=== PATIENT | male | born 1965 | race Caucasian/White ===

== ENCOUNTER 2018-04-05 14:02 | Inpatient (IN) | payer OTHER ==
[2018-04-05 14:50] LABS: ADD MAN DIFF? NO
[2018-04-05 14:56] LABS: WHITE BLOOD COUNT 11.4 10^3/ul (4.8-10.8)
[2018-04-05 14:56] LABS: ABNORMAL IP MESSAGE 1; BASOPHILS % 0.3 % (0.0-2.0); HEMATOCRIT 42.8 % (42.0-52.0); HEMOGLOBIN 14.8 g/dl (14.0-18.0); LYMPHOCYTES # 1.8 10^3/ul (0.8-2.9); LYMPHOCYTES % 15.4 % (15.0-51.0); MEAN CORPUSCULAR HGB CONC 34.6 g/dl (32.0-37.0); MEAN CORPUSCULAR VOLUME 89.7 fl (82.0-101.0); MEAN PLATELET VOLUME 9.6 fl (7.4-10.4); MONOCYTE # 1.8 10^3/ul (0.3-0.9); MONOCYTES % 15.5 % (0.0-11.0); NEUTROPHIL # 7.8 10^3/ul (1.6-7.5); NEUTROPHILS % 68.1 % (39.0-77.0); PLATELET COUNT 256 10^3/UL (140-415); POSITIVE DIFF @See below; RED BLOOD COUNT 4.77 10^6/ul (4.70-6.10); RED CELL DISTRIBUTION WIDTH 12.3 % (11.5-14.5)
[2018-04-05] MEDS: ONDANSETRON 4 MG INJ IV ×2 (14:56→17:05)
[2018-04-05] MEDS: SOD CHLORIDE 0.9% 1,000 ML IV (14:56)
[2018-04-05 15:15] LABS: ALANINE AMINOTRANSFERASE 59 IU/L (13-69); ALBUMIN 4.6 g/dl (3.3-4.9); ALBUMIN/GLOBULIN RATIO 1.39; ALKALINE PHOSPHATASE 71 IU/L (42-121); ANION GAP 29 (5-13); ASPARTATE AMINO TRANSFERASE 46 IU/L (15-46); BILIRUBIN,INDIRECT 0.9 mg/dl (0-1.1); BILIRUBIN,TOTAL 0.9 mg/dl (0.2-1.3); BLOOD UREA NITROGEN 15 mg/dl (7-20); CALCIUM 8.5 mg/dl (8.4-10.2); CARBON DIOXIDE 13 mmol/L (21-31); CHLORIDE 88 mmol/L (97-110); CREATININE 0.53 mg/dl (0.61-1.24); Estimated GFR > 60 mL/min (>60); GLUCOSE 315 mg/dl (70-220); LIPASE 20 U/L (23-300); SODIUM 130 mmol/L (135-144); TOTAL PROTEIN 7.9 g/dl (6.1-8.1)
[2018-04-05 15:17] LABS: ADD UMIC YES; UR ASCORBIC ACID NEGATIVE (NEGATIVE); UR BACTERIA FEW /HPF (NONE SEEN); UR BILIRUBIN (Dip) NEGATIVE (NEGATIVE); UR BLOOD (Dip) 1+ mg/dL (NEGATIVE); UR CLARITY CLEAR (CLEAR); UR COLOR STRAW (YELLOW); UR GLUCOSE (Dip) 3+ mg/dL (NEGATIVE); UR KETONES (Dip) 2+ mg/dL (NEGATIVE); UR LEUKOCYTE ESTERASE (Dip) NEGATIVE Leu/ul (NEGATIVE); UR MUCUS FEW /HPF (NONE SEEN); UR NITRITE (Dip) NEGATIVE (NEGATIVE); UR RBC 0 /HPF (0-5); UR SPECIFIC GRAVITY (Dip) 1.024 (1.003-1.030); UR TOTAL PROTEIN (Dip) NEGATIVE (NEGATIVE); UR UROBILINOGEN (Dip) NEGATIVE (NEGATIVE); UR WBC 1 /HPF (0-5)
[2018-04-05] MEDS ORDERED: SOD CHLORIDE 0.9% 1,000 ML IV (15:34)
[2018-04-05] MEDS ORDERED: NS + KCL 40 MEQ 1,000 ML IV (15:34)
[2018-04-05] MEDS ORDERED: DEXTROSE 10 %/0.45 % NACL 1,000 ML IV (15:34)
[2018-04-05] MEDS ORDERED: D10/0.45% NACL + KCL 40 MEQ 1,000 ML IV (15:34)
[2018-04-05 15:56] LABS: MODE ROOM AIR; MetHgb Venous 0.3 %; Sample Type Blood venous; Site VENOUS LINE; Venous COHb 0.8 %; Venous Fraction OxyHgb 71.3 %; Venous Oxygen Sat 72.1 mmHG (55.0-75.0)
[2018-04-05] MEDS ORDERED: DEXTROSE 50% 50 ML SYRINGE IV ×2 (16:00)
[2018-04-05] MEDS: NS + KCL 30 MEQ 1,000 ML IV (16:20)
[2018-04-05] MEDS: D10/0.45% NACL + KCL 30 MEQ 1,000 ML IV ×3 (16:21→21:35)
[2018-04-05] MEDS: INSULIN REGULAR, HUMAN 100 UNIT in SOD CHLORIDE 0.9% 100 ML IV (16:25)
[2018-04-05 16:32] LABS: HEMOGLOBIN A1C 11.2 % (0-5.9)
[2018-04-05 16:46] LABS: ANION GAP 17 (5-13); BLOOD UREA NITROGEN 13 mg/dl (7-20); CARBON DIOXIDE 12 mmol/L (21-31); CHLORIDE 99 mmol/L (97-110); CREATININE 0.39 mg/dl (0.61-1.24); Estimated GFR > 60 mL/min (>60); GLUCOSE 230 mg/dl (70-220); MAGNESIUM 1.9 mg/dl (1.7-2.5); PHOSPHORUS 1.4 mg/dl (2.5-4.9); POTASSIUM 3.6 mmol/L (3.5-5.1); SODIUM 128 mmol/L (135-144)
[2018-04-05] MEDS ORDERED: ACETAMINOPHEN 325 MG TAB PO ×2 (17:00→17:30)
[2018-04-05] MEDS ORDERED: ALBUTEROL 0.083% (NEB) 2.5 MG/3 ML AMP NEB (17:30)
[2018-04-05] MEDS: METOCLOPRAMIDE 10 MG INJ IV (18:22)
[2018-04-05] MEDS: ACCU-CHEK XX ×5 (19:37→23:53)
[2018-04-05 20:15] LABS: MODE ROOM AIR; MetHgb Venous 0.2 %; Sample Type Blood venous; Site VENOUS LINE; Venous COHb 0.8 %; Venous Fraction OxyHgb 90.3 %; Venous Oxygen Sat 91.2 mmHG (55.0-75.0); Venous Total Hemglobin 12.8 g/dl
[2018-04-05 20:40] LABS: ANION GAP 10 (5-13); BLOOD UREA NITROGEN 9 mg/dl (7-20); CALCIUM 7.3 mg/dl (8.4-10.2); CARBON DIOXIDE 18 mmol/L (21-31); CHLORIDE 101 mmol/L (97-110); CREATININE 0.31 mg/dl (0.61-1.24); Estimated GFR > 60 mL/min (>60); GLUCOSE 272 mg/dl (70-220); PHOSPHORUS 0.7 mg/dl (2.5-4.9); POTASSIUM 3.6 mmol/L (3.5-5.1); SODIUM 129 mmol/L (135-144)
[2018-04-05] MEDS: GABAPENTIN 300 MG CAP PO (21:35)
[2018-04-05] MEDS: FAMOTIDINE 20 MG INJ IV (21:35)
[2018-04-05] MEDS: INSULIN GLARGINE [LANTus] (100 UNITS/ML) SYG SC (22:56)
[2018-04-06 00:25] LABS: ANION GAP 9 (5-13); BLOOD UREA NITROGEN 7 mg/dl (7-20); CALCIUM 7.3 mg/dl (8.4-10.2); CARBON DIOXIDE 21 mmol/L (21-31); CHLORIDE 100 mmol/L (97-110); CREATININE 0.32 mg/dl (0.61-1.24); Estimated GFR > 60 mL/min (>60); GLUCOSE 248 mg/dl (70-220); MAGNESIUM 1.9 mg/dl (1.7-2.5); PHOSPHORUS 0.5 mg/dl (2.5-4.9); POTASSIUM 3.3 mmol/L (3.5-5.1); SODIUM 130 mmol/L (135-144)
[2018-04-06 00:27] LABS: MODE ROOM AIR; MetHgb Venous 0.1 %; Sample Type Blood venous; Site VENOUS LINE; Venous COHb 1.1 %; Venous Fraction OxyHgb 88.8 %; Venous Oxygen Sat 89.9 mmHG (55.0-75.0); Venous Total Hemglobin 12.6 g/dl
[2018-04-06] MEDS: ACCU-CHEK XX ×7 (01:08→20:37)
[2018-04-06] MEDS: NS + KCL 30 MEQ 1,000 ML IV (02:11)
[2018-04-06 04:56] LABS: ADD MAN DIFF? NO
[2018-04-06 05:06] LABS: BASOPHILS % 0.1 % (0.0-2.0); HEMATOCRIT 32.4 % (42.0-52.0); HEMOGLOBIN 11.6 g/dl (14.0-18.0); LYMPHOCYTES # 1.3 10^3/ul (0.8-2.9); MEAN CORPUSCULAR HEMOGLOBIN 31.1 pg (29.0-33.0); MEAN CORPUSCULAR HGB CONC 35.8 g/dl (32.0-37.0); MEAN CORPUSCULAR VOLUME 86.9 fl (82.0-101.0); MEAN PLATELET VOLUME 9.6 fl (7.4-10.4); MONOCYTE # 1.4 10^3/ul (0.3-0.9); MONOCYTES % 18.5 % (0.0-11.0); NEUTROPHIL # 4.6 10^3/ul (1.6-7.5); PLATELET COUNT 186 10^3/UL (140-415); RED BLOOD COUNT 3.73 10^6/ul (4.70-6.10)
[2018-04-06 05:06] LABS: WHITE BLOOD COUNT 7.3 10^3/ul (4.8-10.8)
[2018-04-06] MEDS: ONDANSETRON 4 MG INJ IV (05:07)
[2018-04-06 05:26] LABS: ANION GAP 9 (5-13); BLOOD UREA NITROGEN 6 mg/dl (7-20); CALCIUM 7.5 mg/dl (8.4-10.2); CARBON DIOXIDE 22 mmol/L (21-31); CHLORIDE 100 mmol/L (97-110); CREATININE 0.31 mg/dl (0.61-1.24); Estimated GFR > 60 mL/min (>60); GLUCOSE 207 mg/dl (70-220); MAGNESIUM 1.9 mg/dl (1.7-2.5); PHOSPHORUS 0.8 mg/dl (2.5-4.9); POTASSIUM 3.2 mmol/L (3.5-5.1); SODIUM 131 mmol/L (135-144)
[2018-04-06] MEDS: METOCLOPRAMIDE 10 MG INJ IV ×2 (08:13→17:38)
[2018-04-06] MEDS: FAMOTIDINE 20 MG INJ IV (08:37)
[2018-04-06] MEDS: INSULIN ASPART [NOVOLOG] 3 ML PEN SC ×7 (08:39→20:34)
[2018-04-06] MEDS: ENOXAPARIN 40 MG/0.4 ML SYG SC (08:45)
[2018-04-06] MEDS ORDERED: GLUCAGON 1 MG INJ IM (09:00)
[2018-04-06] MEDS ORDERED: GLUCOSE GEL 15 GRAM TUBE BUCCAL (09:00)
[2018-04-06] MEDS ORDERED: DEXTROSE 50% 50 ML SYRINGE IV ×2 (09:00)
[2018-04-06] MEDS ORDERED: GLUCOSE GEL 15 GRAM TUBE PO ×2 (09:00)
[2018-04-06] MEDS: POTASSIUM CHLORIDE (SR) 20 MEQ TAB PO (09:37)
[2018-04-06] MEDS: GABAPENTIN 300 MG CAP PO (20:32)
[2018-04-06] MEDS: INSULIN GLARGINE [LANTus] (100 UNITS/ML) SYG SC (20:33)
[2018-04-06] MEDS: FAMOTIDINE 20 MG TAB PO (20:34)
[2018-04-07 05:52] LABS: ADD MAN DIFF? NO
[2018-04-07 06:02] LABS: WHITE BLOOD COUNT 6.6 10^3/ul (4.8-10.8)
[2018-04-07 06:02] LABS: BASOPHILS % 0.3 % (0.0-2.0); EOSINOPHILS % 0.3 % (0.0-7.0); HEMATOCRIT 35.1 % (42.0-52.0); HEMOGLOBIN 12.8 g/dl (14.0-18.0); LYMPHOCYTES # 1.5 10^3/ul (0.8-2.9); LYMPHOCYTES % 23.3 % (15.0-51.0); MEAN CORPUSCULAR HEMOGLOBIN 31.1 pg (29.0-33.0); MEAN CORPUSCULAR HGB CONC 36.5 g/dl (32.0-37.0); MEAN CORPUSCULAR VOLUME 85.2 fl (82.0-101.0); MEAN PLATELET VOLUME 9.8 fl (7.4-10.4); MONOCYTE # 1.1 10^3/ul (0.3-0.9); MONOCYTES % 17.1 % (0.0-11.0); NEUTROPHIL # 3.9 10^3/ul (1.6-7.5); NEUTROPHILS % 58.7 % (39.0-77.0); PLATELET COUNT 197 10^3/UL (140-415); RED BLOOD COUNT 4.12 10^6/ul (4.70-6.10); RED CELL DISTRIBUTION WIDTH 11.9 % (11.5-14.5)
[2018-04-07 06:44] LABS: ALBUMIN 3.2 g/dl (3.3-4.9); ANION GAP 5 (5-13); BLOOD UREA NITROGEN 6 mg/dl (7-20); CALCIUM 8.3 mg/dl (8.4-10.2); CARBON DIOXIDE 36 mmol/L (21-31); CHLORIDE 88 mmol/L (97-110); GLUCOSE 162 mg/dl (70-220); PHOSPHORUS 1.1 mg/dl (2.5-4.9); SODIUM 129 mmol/L (135-144)
[2018-04-07 06:54] LABS: POTASSIUM 2.8 mmol/L (3.5-5.1)
[2018-04-07] MEDS: ACCU-CHEK XX ×4 (07:30→20:22)
[2018-04-07] MEDS: INSULIN ASPART [NOVOLOG] 3 ML PEN SC ×7 (08:09→20:22)
[2018-04-07] MEDS: ENOXAPARIN 40 MG/0.4 ML SYG SC (08:10)
[2018-04-07] MEDS: FAMOTIDINE 20 MG TAB PO ×2 (08:10→20:22)
[2018-04-07] MEDS: POTASSIUM CHLORIDE (SR) 20 MEQ TAB PO (09:13)
[2018-04-07] MEDS: POTASSIUM PHOSPHATE 40 MEQ in SOD CHLORIDE 0.9% 250 ML IVPB (09:14)
[2018-04-07] MEDS: POTASSIUM CHLORIDE 40 MEQ in SOD CHLORIDE 0.9% 1,000 ML IV (14:50)
[2018-04-07] MEDS: INSULIN GLARGINE [LANTus] (100 UNITS/ML) SYG SC (20:21)
[2018-04-07] MEDS: ZOLPIDEM 5 MG TAB PO (20:22)
[2018-04-07] MEDS: GABAPENTIN 300 MG CAP PO (20:22)
[2018-04-08] MEDS: POTASSIUM CHLORIDE 40 MEQ in SOD CHLORIDE 0.9% 1,000 ML IV ×3 (00:36→20:00)
[2018-04-08 06:19] LABS: ADD MAN DIFF? NO
[2018-04-08 06:33] LABS: BASOPHILS % 0.2 % (0.0-2.0); EOSINOPHILS % 0.8 % (0.0-7.0); HEMATOCRIT 36.2 % (42.0-52.0); LYMPHOCYTES # 1.4 10^3/ul (0.8-2.9); LYMPHOCYTES % 26.9 % (15.0-51.0); MEAN CORPUSCULAR HEMOGLOBIN 31.3 pg (29.0-33.0); MEAN CORPUSCULAR HGB CONC 35.9 g/dl (32.0-37.0); MEAN PLATELET VOLUME 9.9 fl (7.4-10.4); MONOCYTE # 0.9 10^3/ul (0.3-0.9); MONOCYTES % 17.2 % (0.0-11.0); NEUTROPHIL # 2.8 10^3/ul (1.6-7.5); NEUTROPHILS % 54.5 % (39.0-77.0); PLATELET COUNT 188 10^3/UL (140-415); RED BLOOD COUNT 4.16 10^6/ul (4.70-6.10)
[2018-04-08 06:33] LABS: WHITE BLOOD COUNT 5.1 10^3/ul (4.8-10.8)
[2018-04-08 07:29] LABS: ALBUMIN 3.1 g/dl (3.3-4.9); ANION GAP 5 (5-13); BLOOD UREA NITROGEN 4 mg/dl (7-20); CALCIUM 8.5 mg/dl (8.4-10.2); CARBON DIOXIDE 29 mmol/L (21-31); CHLORIDE 96 mmol/L (97-110); CREATININE 0.34 mg/dl (0.61-1.24); GLUCOSE 106 mg/dl (70-220); MAGNESIUM 2.1 mg/dl (1.7-2.5); PHOSPHORUS 1.7 mg/dl (2.5-4.9); POTASSIUM 3.6 mmol/L (3.5-5.1); SODIUM 130 mmol/L (135-144)
[2018-04-08] MEDS: ACCU-CHEK XX ×4 (07:30→20:12)
[2018-04-08] MEDS: INSULIN ASPART [NOVOLOG] 3 ML PEN SC ×7 (08:00→20:11)
[2018-04-08] MEDS: ENOXAPARIN 40 MG/0.4 ML SYG SC (08:15)
[2018-04-08] MEDS: FAMOTIDINE 20 MG TAB PO (08:15)
[2018-04-08] MEDS: ONDANSETRON 4 MG INJ IV (11:04)
[2018-04-08] MEDS: POTASSIUM PHOSPHATE 30 MM in SOD CHLORIDE 0.9% 250 ML IVPB (11:05)
[2018-04-08] MEDS: POLYETHYLENE GLYCOL 17 GM PACKET PO (12:12)
[2018-04-08] MEDS: BACLOFEN 10 MG TAB PO ×2 (17:47→20:06)
[2018-04-08] MEDS: GABAPENTIN 300 MG CAP PO (20:06)
[2018-04-08] MEDS: INSULIN GLARGINE [LANTus] (100 UNITS/ML) SYG SC (20:11)
[2018-04-09] MEDS: POTASSIUM CHLORIDE 40 MEQ in SOD CHLORIDE 0.9% 1,000 ML IV ×2 (03:55→16:04)
[2018-04-09 05:33] LABS: ADD MAN DIFF? NO
[2018-04-09 05:34] LABS: BASOPHILS % 0.3 % (0.0-2.0); EOSINOPHILS % 0.1 % (0.0-7.0); HEMATOCRIT 35.2 % (42.0-52.0); HEMOGLOBIN 12.4 g/dl (14.0-18.0); LYMPHOCYTES # 0.9 10^3/ul (0.8-2.9); LYMPHOCYTES % 11.5 % (15.0-51.0); MEAN CORPUSCULAR HEMOGLOBIN 31.2 pg (29.0-33.0); MEAN CORPUSCULAR HGB CONC 35.2 g/dl (32.0-37.0); MEAN CORPUSCULAR VOLUME 88.4 fl (82.0-101.0); MEAN PLATELET VOLUME 9.5 fl (7.4-10.4); MONOCYTE # 0.6 10^3/ul (0.3-0.9); MONOCYTES % 7.7 % (0.0-11.0); PLATELET COUNT 204 10^3/UL (140-415); RED BLOOD COUNT 3.98 10^6/ul (4.70-6.10); RED CELL DISTRIBUTION WIDTH 12.2 % (11.5-14.5)
[2018-04-09 05:34] LABS: WHITE BLOOD COUNT 7.5 10^3/ul (4.8-10.8)
[2018-04-09 05:59] LABS: ALBUMIN 3.1 g/dl (3.3-4.9); ANION GAP 7 (5-13); BLOOD UREA NITROGEN 7 mg/dl (7-20); CALCIUM 8.6 mg/dl (8.4-10.2); CARBON DIOXIDE 29 mmol/L (21-31); CHLORIDE 96 mmol/L (97-110); CREATININE 0.39 mg/dl (0.61-1.24); GLUCOSE 132 mg/dl (70-220); PHOSPHORUS 3.3 mg/dl (2.5-4.9); POTASSIUM 3.9 mmol/L (3.5-5.1); SODIUM 132 mmol/L (135-144)
[2018-04-09] MEDS: PANTOPRAZOLE (EC) 40 MG TAB PO (06:05)
[2018-04-09] MEDS: ACCU-CHEK XX ×4 (08:06→21:00)
[2018-04-09] MEDS: INSULIN ASPART [NOVOLOG] 3 ML PEN SC ×7 (08:07→20:26)
[2018-04-09] MEDS: ENOXAPARIN 40 MG/0.4 ML SYG SC (08:08)
[2018-04-09] MEDS: BACLOFEN 10 MG TAB PO ×3 (08:09→20:24)
[2018-04-09] MEDS: POLYETHYLENE GLYCOL 17 GM PACKET PO (08:09)
[2018-04-09] MEDS ORDERED: OLOPATADINE 0.1% 5 ML OPH BOTH EYES ×2 (10:00→12:00)
[2018-04-09] MEDS: INFLUENZA VIRUS VACCINE 0.5 ML (DISPENSING) IM* (14:03)
[2018-04-09] MEDS: OLOPATADINE 0.2% (ONCE A DAY) OPHTH DROP 2.5 ML BOTH EYES (14:22)
[2018-04-09] MEDS: GABAPENTIN 300 MG CAP PO (20:24)
[2018-04-09] MEDS: INSULIN GLARGINE [LANTus] (100 UNITS/ML) SYG SC (20:25)
[2018-04-09] MEDS: ZOLPIDEM 5 MG TAB PO (23:59)
[2018-04-10] MEDS: PANTOPRAZOLE (EC) 40 MG TAB PO (05:22)
[2018-04-10] MEDS: POTASSIUM CHLORIDE 40 MEQ in SOD CHLORIDE 0.9% 1,000 ML IV (05:22)
[2018-04-10 05:51] LABS: ADD MAN DIFF? NO
[2018-04-10 06:05] LABS: WHITE BLOOD COUNT 6.5 10^3/ul (4.8-10.8)
[2018-04-10 06:05] LABS: BASOPHILS % 0.5 % (0.0-2.0); EOSINOPHILS # 0.1 10^3/ul (0.0-0.5); EOSINOPHILS % 0.9 % (0.0-7.0); HEMATOCRIT 36.3 % (42.0-52.0); HEMOGLOBIN 12.5 g/dl (14.0-18.0); LYMPHOCYTES # 1.2 10^3/ul (0.8-2.9); LYMPHOCYTES % 18.6 % (15.0-51.0); MEAN CORPUSCULAR HEMOGLOBIN 30.9 pg (29.0-33.0); MEAN CORPUSCULAR HGB CONC 34.4 g/dl (32.0-37.0); MEAN CORPUSCULAR VOLUME 89.9 fl (82.0-101.0); MEAN PLATELET VOLUME 9.5 fl (7.4-10.4); MONOCYTE # 1.1 10^3/ul (0.3-0.9); MONOCYTES % 17.5 % (0.0-11.0); PLATELET COUNT 229 10^3/UL (140-415); RED BLOOD COUNT 4.04 10^6/ul (4.70-6.10); RED CELL DISTRIBUTION WIDTH 12.7 % (11.5-14.5)
[2018-04-10 07:03] LABS: ALBUMIN 3.2 g/dl (3.3-4.9); ANION GAP 7 (5-13); BLOOD UREA NITROGEN 9 mg/dl (7-20); CALCIUM 9.1 mg/dl (8.4-10.2); CARBON DIOXIDE 29 mmol/L (21-31); CHLORIDE 96 mmol/L (97-110); CREATININE 0.42 mg/dl (0.61-1.24); GLUCOSE 206 mg/dl (70-220); PHOSPHORUS 3.5 mg/dl (2.5-4.9); POTASSIUM 4.2 mmol/L (3.5-5.1); SODIUM 132 mmol/L (135-144)
[2018-04-10] MEDS: ACCU-CHEK XX ×4 (08:15→20:20)
[2018-04-10] MEDS: INSULIN ASPART [NOVOLOG] 3 ML PEN SC ×7 (08:16→20:20)
[2018-04-10] MEDS: POLYETHYLENE GLYCOL 17 GM PACKET PO (09:05)
[2018-04-10] MEDS: BACLOFEN 10 MG TAB PO ×3 (09:05→20:19)
[2018-04-10] MEDS: ENOXAPARIN 40 MG/0.4 ML SYG SC (09:07)
[2018-04-10] MEDS: INFLUENZA VIRUS VACCINE 0.5 ML (DISPENSING) IM* (10:34)
[2018-04-10] MEDS: MAGNESIUM HYDROXIDE 30ML CUP PO (11:00)
[2018-04-10] MEDS: GABAPENTIN 300 MG CAP PO (20:19)
[2018-04-10] MEDS: INSULIN GLARGINE [LANTus] (100 UNITS/ML) SYG SC (20:20)
[2018-04-11 06:06] LABS: ADD MAN DIFF? NO
[2018-04-11 06:12] LABS: ABNORMAL IP MESSAGE 1; BASOPHILS % 0.5 % (0.0-2.0); EOSINOPHILS # 0.1 10^3/ul (0.0-0.5); EOSINOPHILS % 1.4 % (0.0-7.0); HEMATOCRIT 37.1 % (42.0-52.0); HEMOGLOBIN 12.6 g/dl (14.0-18.0); LYMPHOCYTES # 1.9 10^3/ul (0.8-2.9); LYMPHOCYTES % 22.1 % (15.0-51.0); MEAN CORPUSCULAR HEMOGLOBIN 30.7 pg (29.0-33.0); MEAN CORPUSCULAR VOLUME 90.3 fl (82.0-101.0); MEAN PLATELET VOLUME 9.6 fl (7.4-10.4); MONOCYTE # 1.8 10^3/ul (0.3-0.9); MONOCYTES % 21.3 % (0.0-11.0); NEUTROPHIL # 4.6 10^3/ul (1.6-7.5); NEUTROPHILS % 54.3 % (39.0-77.0); PLATELET COUNT 293 10^3/UL (140-415); POSITIVE DIFF @See below; RED BLOOD COUNT 4.11 10^6/ul (4.70-6.10); RED CELL DISTRIBUTION WIDTH 12.9 % (11.5-14.5)
[2018-04-11 06:12] LABS: WHITE BLOOD COUNT 8.4 10^3/ul (4.8-10.8)
[2018-04-11] MEDS: PANTOPRAZOLE (EC) 40 MG TAB PO (06:26)
[2018-04-11 06:46] LABS: ALBUMIN 3.3 g/dl (3.3-4.9); ANION GAP 7 (5-13); BLOOD UREA NITROGEN 19 mg/dl (7-20); CALCIUM 9.2 mg/dl (8.4-10.2); CARBON DIOXIDE 31 mmol/L (21-31); CHLORIDE 93 mmol/L (97-110); CREATININE 0.42 mg/dl (0.61-1.24); GLUCOSE 296 mg/dl (70-220); MAGNESIUM 2.1 mg/dl (1.7-2.5); PHOSPHORUS 4.3 mg/dl (2.5-4.9); POTASSIUM 4.3 mmol/L (3.5-5.1); SODIUM 131 mmol/L (135-144)
[2018-04-11] MEDS: INSULIN ASPART [NOVOLOG] 3 ML PEN SC ×7 (07:46→20:06)
[2018-04-11] MEDS: ACCU-CHEK XX ×4 (07:47→20:06)
[2018-04-11] MEDS: POLYETHYLENE GLYCOL 17 GM PACKET PO (09:23)
[2018-04-11] MEDS: ENOXAPARIN 40 MG/0.4 ML SYG SC (09:24)
[2018-04-11] MEDS: DOCUSATE SODIUM 100 MG CAP PO (09:24)
[2018-04-11] MEDS: BACLOFEN 10 MG TAB PO ×2 (09:24→12:16)
[2018-04-11] MEDS: MINERAL OIL 133 ML ENEMA PR (16:30)
[2018-04-11] MEDS: MAGNESIUM CITRATE 300 ML BTL PO (16:36)
[2018-04-11] MEDS: GABAPENTIN 300 MG CAP PO (20:06)
[2018-04-11] MEDS: INSULIN GLARGINE [LANTus] (100 UNITS/ML) SYG SC (20:06)
[2018-04-12] MEDS: PANTOPRAZOLE (EC) 40 MG TAB PO (06:14)
[2018-04-12 06:17] LABS: ADD MAN DIFF? NO
[2018-04-12 06:23] LABS: WHITE BLOOD COUNT 8.2 10^3/ul (4.8-10.8)
[2018-04-12 06:23] LABS: ABNORMAL IP MESSAGE 1; BASOPHILS % 0.4 % (0.0-2.0); EOSINOPHILS # 0.1 10^3/ul (0.0-0.5); EOSINOPHILS % 1.1 % (0.0-7.0); HEMATOCRIT 35.3 % (42.0-52.0); HEMOGLOBIN 11.8 g/dl (14.0-18.0); LYMPHOCYTES # 1.6 10^3/ul (0.8-2.9); LYMPHOCYTES % 19.1 % (15.0-51.0); MEAN CORPUSCULAR HEMOGLOBIN 30.8 pg (29.0-33.0); MEAN CORPUSCULAR HGB CONC 33.4 g/dl (32.0-37.0); MEAN CORPUSCULAR VOLUME 92.2 fl (82.0-101.0); MEAN PLATELET VOLUME 9.3 fl (7.4-10.4); MONOCYTE # 1.9 10^3/ul (0.3-0.9); MONOCYTES % 22.9 % (0.0-11.0); NEUTROPHIL # 4.6 10^3/ul (1.6-7.5); PLATELET COUNT 330 10^3/UL (140-415); POSITIVE DIFF @See below; RED BLOOD COUNT 3.83 10^6/ul (4.70-6.10); RED CELL DISTRIBUTION WIDTH 13.2 % (11.5-14.5)
[2018-04-12 07:02] LABS: ALBUMIN 3.4 g/dl (3.3-4.9); ANION GAP 8 (5-13); BLOOD UREA NITROGEN 19 mg/dl (7-20); CALCIUM 8.6 mg/dl (8.4-10.2); CARBON DIOXIDE 33 mmol/L (21-31); CHLORIDE 91 mmol/L (97-110); CREATININE 0.46 mg/dl (0.61-1.24); GLUCOSE 223 mg/dl (70-220); MAGNESIUM 2.5 mg/dl (1.7-2.5); PHOSPHORUS 3.4 mg/dl (2.5-4.9); POTASSIUM 4.1 mmol/L (3.5-5.1); SODIUM 132 mmol/L (135-144)
[2018-04-12] MEDS: ACCU-CHEK XX ×4 (07:30→21:00)
[2018-04-12] MEDS: INSULIN ASPART [NOVOLOG] 3 ML PEN SC ×7 (08:22→20:50)
[2018-04-12] MEDS: ENOXAPARIN 40 MG/0.4 ML SYG SC (09:43)
[2018-04-12] MEDS: POLYETHYLENE GLYCOL 17 GM PACKET PO (09:47)
[2018-04-12] MEDS: SOD CHLORIDE 0.9% 1,000 ML IV ×4 (09:47→21:00)
[2018-04-12] MEDS: GABAPENTIN 300 MG CAP PO (20:50)
[2018-04-12] MEDS: INSULIN GLARGINE [LANTus] (100 UNITS/ML) SYG SC (20:58)
[2018-04-12 22:36] LABS: TROPONIN-I < 0.012 ng/ml (0.000-0.120)
[2018-04-13] MEDS: SOD CHLORIDE 0.9% 1,000 ML IV ×3 (02:47→11:18)
[2018-04-13 05:38] LABS: ADD MAN DIFF? NO
[2018-04-13 05:46] LABS: WHITE BLOOD COUNT 7.1 10^3/ul (4.8-10.8)
[2018-04-13 05:46] LABS: BASOPHILS % 0.4 % (0.0-2.0); EOSINOPHILS # 0.1 10^3/ul (0.0-0.5); EOSINOPHILS % 1.7 % (0.0-7.0); HEMATOCRIT 32.5 % (42.0-52.0); HEMOGLOBIN 10.8 g/dl (14.0-18.0); LYMPHOCYTES # 1.8 10^3/ul (0.8-2.9); LYMPHOCYTES % 25.7 % (15.0-51.0); MEAN CORPUSCULAR HEMOGLOBIN 30.8 pg (29.0-33.0); MEAN CORPUSCULAR HGB CONC 33.2 g/dl (32.0-37.0); MEAN CORPUSCULAR VOLUME 92.6 fl (82.0-101.0); MEAN PLATELET VOLUME 9.1 fl (7.4-10.4); MONOCYTE # 1.5 10^3/ul (0.3-0.9); MONOCYTES % 20.5 % (0.0-11.0); NEUTROPHIL # 3.6 10^3/ul (1.6-7.5); NEUTROPHILS % 51.1 % (39.0-77.0); PLATELET COUNT 348 10^3/UL (140-415); RED BLOOD COUNT 3.51 10^6/ul (4.70-6.10); RED CELL DISTRIBUTION WIDTH 13.3 % (11.5-14.5)
[2018-04-13 06:05] LABS: INR 0.92; PROTIME 12.5 Sec (11.9-14.9)
[2018-04-13] MEDS: PANTOPRAZOLE (EC) 40 MG TAB PO (06:08)
[2018-04-13 06:16] LABS: ALANINE AMINOTRANSFERASE 42 IU/L (13-69); ALBUMIN/GLOBULIN RATIO 1.07; ALKALINE PHOSPHATASE 62 IU/L (42-121); ANION GAP 7 (5-13); ASPARTATE AMINO TRANSFERASE 30 IU/L (15-46); BILIRUBIN,INDIRECT 0.2 mg/dl (0-1.1); BILIRUBIN,TOTAL 0.2 mg/dl (0.2-1.3); BLOOD UREA NITROGEN 12 mg/dl (7-20); CALCIUM 8.5 mg/dl (8.4-10.2); CARBON DIOXIDE 29 mmol/L (21-31); CHLORIDE 101 mmol/L (97-110); CREATININE 0.48 mg/dl (0.61-1.24); Estimated GFR > 60 mL/min (>60); GLUCOSE 88 mg/dl (70-220); SODIUM 137 mmol/L (135-144); TOTAL PROTEIN 5.8 g/dl (6.1-8.1)
[2018-04-13 06:23] LABS: MAGNESIUM 2.3 mg/dl (1.7-2.5)
[2018-04-13 06:23] LABS: PHOSPHORUS 3.5 mg/dl (2.5-4.9)
[2018-04-13 06:28] LABS: TROPONIN-I < 0.012 ng/ml (0.000-0.120)
[2018-04-13] MEDS: ACCU-CHEK XX ×3 (07:30→17:12)
[2018-04-13] MEDS: INSULIN ASPART [NOVOLOG] 3 ML PEN SC ×6 (07:53→17:12)
[2018-04-13] MEDS: POLYETHYLENE GLYCOL 17 GM PACKET PO (08:05)
[2018-04-13] MEDS: ENOXAPARIN 40 MG/0.4 ML SYG SC (08:08)
== END 2018-04-13 18:45 | disposition home or self-care (01) | DRG 638 ==
LOC: PP2 04-06 12:14 → E/R 14:02 → ICU 16:38
DX: E10.10 Type 1 diabetes mellitus with ketoacidosis without coma (principal); E87.1 Hypo-osmolality and hyponatremia; E44.0 Moderate protein-calorie malnutrition; K59.00 Constipation, unspecified; E87.6 Hypokalemia; Z79.4 Long term (current) use of insulin; Z68.21 Body mass index [BMI] 21.0-21.9, adult; Z91.14 Patient's other noncompliance with medication regimen
CPT/HCPCS: 36415; 71045; 80048; 80053; 80069; 81001; 82533; 82803; 82962; 83036; 83690; 83735; 84100; 84443; 84484; 85025; 85610; 87081; 90686; 93005; 96374; 96375; 99291-25

== ENCOUNTER 2018-05-05 12:50 | Emergency (ER) | payer OTHER ==
[2018-05-05] MEDS: FAMOTIDINE 20 MG INJ IV (15:34)
[2018-05-05] MEDS: ONDANSETRON 4 MG INJ IV (15:34)
[2018-05-05] MEDS: SOD CHLORIDE 0.9% 1,000 ML IV (15:35)
[2018-05-05 15:44] LABS: ADD MAN DIFF? NO
[2018-05-05 15:48] LABS: WHITE BLOOD COUNT 7.8 10^3/ul (4.8-10.8)
[2018-05-05 15:48] LABS: BASOPHILS % 0.3 % (0.0-2.0); HEMATOCRIT 43.8 % (42.0-52.0); HEMOGLOBIN 14.3 g/dl (14.0-18.0); LYMPHOCYTES # 1.3 10^3/ul (0.8-2.9); MEAN CORPUSCULAR HGB CONC 32.6 g/dl (32.0-37.0); MEAN PLATELET VOLUME 10.7 fl (7.4-10.4); MONOCYTE # 0.4 10^3/ul (0.3-0.9); MONOCYTES % 5.1 % (0.0-11.0); NEUTROPHILS % 77.2 % (39.0-77.0); PLATELET COUNT 198 10^3/UL (140-415); RED BLOOD COUNT 4.61 10^6/ul (4.70-6.10); RED CELL DISTRIBUTION WIDTH 13.4 % (11.5-14.5)
[2018-05-05 16:07] LABS: ALANINE AMINOTRANSFERASE 57 IU/L (13-69); ALBUMIN 4.9 g/dl (3.3-4.9); ALBUMIN/GLOBULIN RATIO 1.75; ALKALINE PHOSPHATASE 75 IU/L (42-121); ANION GAP 16 (5-13); ASPARTATE AMINO TRANSFERASE 29 IU/L (15-46); BILIRUBIN,INDIRECT 1.2 mg/dl (0-1.1); BILIRUBIN,TOTAL 1.2 mg/dl (0.2-1.3); BLOOD UREA NITROGEN 20 mg/dl (7-20); CALCIUM 10.1 mg/dl (8.4-10.2); CARBON DIOXIDE 29 mmol/L (21-31); CHLORIDE 93 mmol/L (97-110); Estimated GFR > 60 mL/min (>60); GLUCOSE 353 mg/dl (70-220); POTASSIUM 4.5 mmol/L (3.5-5.1); SODIUM 138 mmol/L (135-144); TOTAL PROTEIN 7.7 g/dl (6.1-8.1)
[2018-05-05 16:11] LABS: LIPASE < 10 U/L (23-300)
[2018-05-05 16:21] LABS: ADD UMIC NO; UR ASCORBIC ACID 20 mg/dL (NEGATIVE); UR BILIRUBIN (Dip) NEGATIVE (NEGATIVE); UR BLOOD (Dip) NEGATIVE (NEGATIVE); UR CLARITY CLEAR (CLEAR); UR COLOR YELLOW (YELLOW); UR GLUCOSE (Dip) 3+ mg/dL (NEGATIVE); UR KETONES (Dip) 2+ mg/dL (NEGATIVE); UR LEUKOCYTE ESTERASE (Dip) NEGATIVE Leu/ul (NEGATIVE); UR NITRITE (Dip) NEGATIVE (NEGATIVE); UR SPECIFIC GRAVITY (Dip) 1.033 (1.003-1.030); UR TOTAL PROTEIN (Dip) NEGATIVE (NEGATIVE); UR UROBILINOGEN (Dip) NEGATIVE (NEGATIVE)
[2018-05-05] MEDS ORDERED: ONDANSETRON (ODT) 4 MG TAB ODT (17:52)
[2018-05-05] MEDS: ONDANSETRON (ODT) 4 MG TAB ODT (17:54)
== END 2018-05-05 18:19 | disposition home or self-care (01) ==
LOC: FTE 12:50
DX: R11.2 Nausea with vomiting, unspecified (principal)
CPT/HCPCS: 36415; 80053; 81003; 83690; 85025; 93005; 96361; 96374; 96375; 99284-25

== ENCOUNTER 2018-06-08 20:27 | Inpatient (IN) | payer OTHER ==
[2018-06-08] MEDS: SOD CHLORIDE 0.9% 1,000 ML IV (22:12)
[2018-06-08 22:16] LABS: WHITE BLOOD COUNT 5.4 10^3/ul (4.8-10.8)
[2018-06-08 22:16] LABS: ABNORMAL IP MESSAGE 1; HEMATOCRIT 44.8 % (42.0-52.0); HEMOGLOBIN 15.2 g/dl (14.0-18.0); MEAN CORPUSCULAR HGB CONC 33.9 g/dl (32.0-37.0); MEAN CORPUSCULAR VOLUME 91.4 fl (82.0-101.0); MEAN PLATELET VOLUME 9.6 fl (7.4-10.4); PLATELET COUNT 207 10^3/UL (140-415); POSITIVE DIFF @See below; RED CELL DISTRIBUTION WIDTH 12.8 % (11.5-14.5)
[2018-06-08 22:19] LABS: ADD MAN DIFF? YES
[2018-06-08 22:32] LABS: ALANINE AMINOTRANSFERASE 39 IU/L (13-69); ALBUMIN 4.3 g/dl (3.3-4.9); ALBUMIN/GLOBULIN RATIO 1.59; ALKALINE PHOSPHATASE 84 IU/L (42-121); ANION GAP 23 (5-13); ASPARTATE AMINO TRANSFERASE 13 IU/L (15-46); BILIRUBIN,INDIRECT 1.2 mg/dl (0-1.1); BILIRUBIN,TOTAL 1.2 mg/dl (0.2-1.3); BLOOD UREA NITROGEN 14 mg/dl (7-20); CALCIUM 8.7 mg/dl (8.4-10.2); CHLORIDE 95 mmol/L (97-110); CREATININE 0.62 mg/dl (0.61-1.24); Estimated GFR > 60 mL/min (>60); LIPASE 12 U/L (23-300); POTASSIUM 3.5 mmol/L (3.5-5.1); SODIUM 125 mmol/L (135-144)
[2018-06-08 22:38] LABS: CARBON DIOXIDE 7 mmol/L (21-31); GLUCOSE 434 mg/dl (70-220)
[2018-06-08] MEDS ORDERED: NS + KCL 40 MEQ 1,000 ML IV (23:03)
[2018-06-08] MEDS ORDERED: SOD CHLORIDE 0.9% 1,000 ML IV (23:03)
[2018-06-08] MEDS ORDERED: DEXTROSE 10%/0.45% NACL 1,000 ML IV (23:03)
[2018-06-08] MEDS ORDERED: D10/0.45% NACL + KCL 40 MEQ 1,000 ML IV (23:03)
[2018-06-08] MEDS: LACTATED RINGER'S 520 ML IV (23:15)
[2018-06-08 23:24] LABS: MODE ROOM AIR; MetHgb Venous 0.2 %; Sample Type Blood venous; Site VENOUS LINE; Venous COHb 0.7 %; Venous Fraction OxyHgb 85.5 %; Venous Oxygen Sat 86.3 mmHG (55.0-75.0); Venous Total Hemglobin 14.2 g/dl
[2018-06-08] MEDS ORDERED: DEXTROSE 50% 50 ML SYRINGE IV ×2 (23:30)
[2018-06-08 23:34] LABS: ANISOCYTOSIS 1+ (0-0); BAND NEUTROPHILS % (M) 38 % (0-4); LYMPHOCYTES #M 0.5 10^3/ul (0.8-2.9); LYMPHOCYTES % (M) 10 % (15-51); METAMYELOCYTES #M 0.2 10^3/ul (0.0-0.0); METAMYELOCYTES %M 5 % (0-0); MICROCYTOSIS 1+ (0-0); MONOCYTE #M 0.9 10^3/ul (0.3-0.9); MONOCYTES % (M) 18 % (0-11); MYELOCYTES % (M) 1 % (0-0); PLATELET ESTIMATE NORMAL; POLYCHROMASIA 2+ (0-0); SEG NEUT #M 1.6 10^3/ul (1.6-7.5); SEGMENTED NEUTROPHILS (M) % 28 % (39-77); SMUDGE%M 20 % (0-0)
[2018-06-08 23:53] LABS: ADD UMIC YES; UR ASCORBIC ACID NEGATIVE (NEGATIVE); UR BACTERIA FEW /HPF (NONE SEEN); UR BILIRUBIN (Dip) NEGATIVE (NEGATIVE); UR BLOOD (Dip) 2+ mg/dL (NEGATIVE); UR CLARITY SLIGHTLY CLOUDY (CLEAR); UR COLOR STRAW (YELLOW); UR GLUCOSE (Dip) 3+ mg/dL (NEGATIVE); UR KETONES (Dip) 2+ mg/dL (NEGATIVE); UR LEUKOCYTE ESTERASE (Dip) NEGATIVE Leu/ul (NEGATIVE); UR NITRITE (Dip) NEGATIVE (NEGATIVE); UR RBC 0 /HPF (0-5); UR SPECIFIC GRAVITY (Dip) 1.018 (1.003-1.030); UR TOTAL PROTEIN (Dip) 1+ mg/dl (NEGATIVE); UR UROBILINOGEN (Dip) NEGATIVE (NEGATIVE); UR WBC 1 /HPF (0-5)
[2018-06-09 00:05] LABS: HEMOGLOBIN A1C 11.2 % (0-5.9)
[2018-06-09] MEDS: NS + KCL 30 MEQ 1,000 ML IV (00:13)
[2018-06-09] MEDS: INSULIN REGULAR, HUMAN 100 UNIT in SOD CHLORIDE 0.9% 100 ML IV (00:17)
[2018-06-09] MEDS: ONDANSETRON 4 MG INJ IV (00:26)
[2018-06-09] MEDS: D10/0.45% NACL + KCL 30 MEQ 1,000 ML IV (01:00)
[2018-06-09 01:25] LABS: ANION GAP 21 (5-13); BLOOD UREA NITROGEN 14 mg/dl (7-20); CALCIUM 7.9 mg/dl (8.4-10.2); CHLORIDE 101 mmol/L (97-110); CREATININE 0.56 mg/dl (0.61-1.24); Estimated GFR > 60 mL/min (>60); GLUCOSE 391 mg/dl (70-220); MAGNESIUM 1.9 mg/dl (1.7-2.5); MODE NASAL CANNULA; MetHgb Venous 0.1 %; PHOSPHORUS 1.8 mg/dl (2.5-4.9); POTASSIUM 3.5 mmol/L (3.5-5.1); SODIUM 128 mmol/L (135-144); Sample Type Blood venous; Site VENOUS LINE; Venous COHb 0.9 %; Venous Fraction OxyHgb 83.6 %; Venous Oxygen Sat 84.4 mmHG (55.0-75.0); Venous Total Hemglobin 14.1 g/dl
[2018-06-09 01:29] LABS: CARBON DIOXIDE 6 mmol/L (21-31)
[2018-06-09 02:09] LABS: AADO2 Arterial 174.9 mmHg (7.0-24.0); Allen Test ACCEPTAB; Arterial Base Excess -18.4 mmol/L (-3.0-3); Arterial Blood Gas Oxygen Sat 91.1 mmHG (95.0-98.0); Arterial COHb 0.8 % (0.0-3.0); Arterial Fraction of Oxyhgb 90.3 % (93.0-99.0); Arterial MetHb 0.1 % (0.0-1.5); Arterial pCO2 17.9 mmhg (35-45); MODE NASAL CANNULA; Site Right Brachial
[2018-06-09] MEDS: CEFTRIAXONE 1 GM/50 ML (PMX) 50 ML IVPB (02:43)
[2018-06-09] MEDS: AZITHROMYCIN 500MG/NS (PMX) 250 ML IV (02:59)
[2018-06-09 03:58] LABS: D-DIMER 493.36 ng/ml (<460)
[2018-06-09] MEDS ORDERED: NORepinephrine 8MG/250 ML (PMX 250 ML (04:01)
[2018-06-09 04:02] LABS: ANION GAP 7 (5-13); BLOOD UREA NITROGEN 9 mg/dl (7-20); CHLORIDE 124 mmol/L (97-110); Estimated GFR > 60 mL/min (>60); GLUCOSE 200 mg/dl (70-220); MAGNESIUM 1.1 mg/dl (1.7-2.5); PHOSPHORUS 0.5 mg/dl (2.5-4.9); SODIUM 139 mmol/L (135-144)
[2018-06-09] MEDS: NORepinephrine 8MG/250 ML (PMX 250 ML IV ×3 (04:05→18:24)
[2018-06-09 04:17] LABS: Blood Gas IEPAP 15/5; MODE MASK - BIPAP; MetHgb Venous 0.3 %; Sample Type Blood venous; Site VENOUS LINE; Venous COHb 0.5 %; Venous Fraction OxyHgb 73.6 %; Venous Oxygen Sat 74.2 mmHG (55.0-75.0); Venous Total Hemglobin 12.5 g/dl
[2018-06-09 04:27] LABS: CARBON DIOXIDE 8 mmol/L (21-31); POTASSIUM 1.9 mmol/L (3.5-5.1)
[2018-06-09 04:28] LABS: CALCIUM 4.6 mg/dl (8.4-10.2)
[2018-06-09 04:33] LABS: TROPONIN-I < 0.012 ng/ml (0.000-0.120)
[2018-06-09 04:59] LABS: POTASSIUM 2.9 mmol/L (3.5-5.1)
[2018-06-09] MEDS: NS + KCL 40 MEQ 1,000 ML IV (05:21)
[2018-06-09 07:00] LABS: Blood Gas IEPAP 15/5; Blood Gas PS 10; MODE MASK - BIPAP; MetHgb Venous 0.4 %; Sample Type Blood venous; Site VENOUS LINE; Venous COHb 0.1 %; Venous Fraction OxyHgb 71.5 %; Venous Oxygen Sat 71.9 mmHG (55.0-75.0); Venous Total Hemglobin 13.2 g/dl
[2018-06-09] MEDS ORDERED: VANCOMYCIN IV PER PHARMACY XX (07:00)
[2018-06-09 07:06] LABS: ANION GAP 13 (5-13); BLOOD UREA NITROGEN 13 mg/dl (7-20); CALCIUM 7.1 mg/dl (8.4-10.2); CHLORIDE 112 mmol/L (97-110); CREATININE 0.51 mg/dl (0.61-1.24); Estimated GFR > 60 mL/min (>60); GLUCOSE 304 mg/dl (70-220); MAGNESIUM 1.6 mg/dl (1.7-2.5); PHOSPHORUS 0.9 mg/dl (2.5-4.9); POTASSIUM 3.2 mmol/L (3.5-5.1); SODIUM 135 mmol/L (135-144)
[2018-06-09 07:13] LABS: LACTIC ACID 2.3 mmol/L (0.5-2.0)
[2018-06-09 07:16] LABS: CARBON DIOXIDE 10 mmol/L (21-31)
[2018-06-09] MEDS: CALCIUM GLUCONATE 10% 2 GM in DEXTROSE 5% 100 ML IVPB (08:16)
[2018-06-09] MEDS: VASOPRESSIN 60 UNIT in SOD CHLORIDE 0.9% 57 ML IV (08:26)
[2018-06-09] MEDS: POTASSIUM PHOSPHATE 30 MM in SOD CHLORIDE 0.9% 250 ML IVPB (08:50)
[2018-06-09] MEDS: FAMOTIDINE 20 MG INJ IV ×2 (09:41→21:00)
[2018-06-09] MEDS: HYDROCORTISONE 100 MG INJ IV (09:41)
[2018-06-09] MEDS: CEFEPIME 1GM/50 ML (PMX) 50 ML IVPB (09:41)
[2018-06-09] MEDS: HEPARIN 5,000 UNIT/1 ML VIAL SC (09:42)
[2018-06-09] MEDS: MAGNESIUM SULFATE 3 GM in DEXTROSE 5% 100 ML IVPB (09:42)
[2018-06-09] MEDS: VANCOMYCIN 1 GM in 250 ML IVPB (09:42)
[2018-06-09] MEDS ORDERED: NA BICARBONATE 8.4% 50 ML SYG (10:10)
[2018-06-09] MEDS: NA BICARBONATE 8.4% 50 ML SYG IV (10:15)
[2018-06-09 10:58] LABS: AADO2 Arterial 617.6 mmHg (7.0-24.0); Allen Test ACCEPTAB; Arterial Base Excess -25.5 mmol/L (-3.0-3); Arterial Blood Gas Oxygen Sat 91.9 mmHG (95.0-98.0); Arterial COHb 0.1 % (0.0-3.0); Arterial Fraction of Oxyhgb 91.6 % (93.0-99.0); Arterial HCO3 4.8 mmol/L (22.0-26.0); Arterial MetHb 0.2 % (0.0-1.5); Arterial pCO2 21.1 mmhg (35-45); Blood Gas IEPAP 15/5; Blood Gas PS 10; MODE MASK - BIPAP; Site Left Radial
[2018-06-09] MEDS ORDERED: GLUCAGON 1 MG INJ IM ×2 (11:00→15:00)
[2018-06-09] MEDS ORDERED: DEXTROSE 50% 50 ML SYRINGE IV ×4 (11:00→14:30)
[2018-06-09] MEDS ORDERED: GLUCOSE GEL 15 GRAM TUBE PO ×2 (11:00)
[2018-06-09] MEDS ORDERED: GLUCOSE GEL 15 GRAM TUBE BUCCAL (11:00)
[2018-06-09] MEDS: HYDROmorphONE 1 MG/ML SYG IV (11:23)
[2018-06-09] MEDS: MIDAZOLAM 1 MG/ML 5 ML INJ IV (11:30)
[2018-06-09] MEDS: MIDAZOLAM 5 MG/ML 1ML INJ IV (12:00)
[2018-06-09] MEDS ORDERED: INSULIN ASPART [NOVOLOG] 3 ML PEN SC ×2 (12:00)
[2018-06-09 12:01] LABS: AADO2 Arterial 619.5 mmHg (7.0-24.0); Allen Test ACCEPTAB; Arterial Base Excess -23.6 mmol/L (-3.0-3); Arterial Blood Gas Oxygen Sat 83.4 mmHG (95.0-98.0); Arterial COHb 0.3 % (0.0-3.0); Arterial Fraction of Oxyhgb 82.9 % (93.0-99.0); Arterial HCO3 7.9 mmol/L (22.0-26.0); Arterial MetHb 0.3 % (0.0-1.5); Arterial pCO2 36.8 mmhg (35-45); MODE VENT - AC; Site Left Radial
[2018-06-09] MEDS: MIDAZOLAM (DRIP) 50 mg/50 mL 50 ML IV (12:40)
[2018-06-09 13:03] LABS: ANION GAP 19 (5-13); BLOOD UREA NITROGEN 15 mg/dl (7-20); CALCIUM 7.6 mg/dl (8.4-10.2); CHLORIDE 114 mmol/L (97-110); CREATININE 0.77 mg/dl (0.61-1.24); Estimated GFR > 60 mL/min (>60); POTASSIUM 5.8 mmol/L (3.5-5.1); SODIUM 142 mmol/L (135-144)
[2018-06-09 13:05] LABS: PHOSPHORUS 8.4 mg/dl (2.5-4.9)
[2018-06-09 13:05] LABS: MAGNESIUM 2.4 mg/dl (1.7-2.5)
[2018-06-09 13:11] LABS: CARBON DIOXIDE 9 mmol/L (21-31)
[2018-06-09 13:14] LABS: GLUCOSE 446 mg/dl (70-220)
[2018-06-09 13:16] LABS: LACTIC ACID 2.2 mmol/L (0.5-2.0)
[2018-06-09] MEDS: SODIUM BICARBONATE (IV ADD) 150 MEQ in DEXTROSE 5% 1,000 ML IV (13:42)
[2018-06-09] MEDS: PHENYLephrine 20MG IN 250 ML 250 ML IV (13:51)
[2018-06-09] MEDS: ACCU-CHEK XX ×10 (14:30→23:30)
[2018-06-09 14:39] LABS: AADO2 Arterial 609.2 mmHg (7.0-24.0); Allen Test ACCEPTAB; Arterial Base Excess -23.9 mmol/L (-3.0-3); Arterial COHb 0.1 % (0.0-3.0); Arterial Fraction of Oxyhgb 86.7 % (93.0-99.0); Arterial HCO3 8.5 mmol/L (22.0-26.0); Arterial MetHb 0.2 % (0.0-1.5); Arterial pCO2 43.3 mmhg (35-45); MODE VENT - AC; Site Left Radial
[2018-06-09] MEDS: INSULIN HUMAN REGULAR 100 UNIT in SOD CHLORIDE 0.9% 99 ML IV ×2 (16:02→22:28)
[2018-06-09] MEDS: ACETAMINOPHEN 650MG/20.3ML CUP PO (20:30)
[2018-06-09 20:49] LABS: AADO2 Arterial 620.8 mmHg (7.0-24.0); Allen Test ACCEPTAB; Arterial Base Excess -10.1 mmol/L (-3.0-3); Arterial Blood Gas Oxygen Sat 87.6 mmHG (95.0-98.0); Arterial COHb 0 % (0.0-3.0); Arterial Fraction of Oxyhgb 87.3 % (93.0-99.0); Arterial HCO3 17.1 mmol/L (22.0-26.0); Arterial MetHb 0.3 % (0.0-1.5); Arterial pCO2 42.1 mmhg (35-45); Blood Gas Mean Airway Pressure 13; MODE VENT - AC; Site Right Radial
[2018-06-09] MEDS: GABAPENTIN 300 MG CAP PO (21:00)
[2018-06-09] MEDS: DEXTROSE 5% IV (22:55)
[2018-06-09] MEDS: PHENYLEPHRINE IV (22:55)
[2018-06-09] MEDS ORDERED: MIDAZOLAM (DRIP) 50 mg/50 mL 50 ML IV (23:00)
[2018-06-09] MEDS ORDERED: CA GLUCONATE (GM) 10% 10ML INJ (23:48)
[2018-06-10] MEDS ORDERED: POTASSIUM CHLORIDE 20 MEQ in SOD CHLORIDE 0.9% 1,000 ML IV
[2018-06-10 00:01] LABS: WHITE BLOOD COUNT 0.9 10^3/ul (4.8-10.8)
[2018-06-10 00:01] LABS: ABNORMAL IP MESSAGE 1; HEMATOCRIT 24.1 % (42.0-52.0); HEMOGLOBIN 8.1 g/dl (14.0-18.0); MEAN CORPUSCULAR HEMOGLOBIN 31.6 pg (29.0-33.0); MEAN CORPUSCULAR HGB CONC 33.6 g/dl (32.0-37.0); MEAN CORPUSCULAR VOLUME 94.1 fl (82.0-101.0); PLATELET COUNT 91 10^3/UL (140-415); POSITIVE DIFF @See below; RED BLOOD COUNT 2.56 10^6/ul (4.70-6.10); RED CELL DISTRIBUTION WIDTH 13.6 % (11.5-14.5)
[2018-06-10 00:06] LABS: ADD MAN DIFF? YES
[2018-06-10] MEDS ORDERED: DOPamine-D5W 1.6 MG/ML 250 ML (00:09)
[2018-06-10 00:11] LABS: AADO2 Arterial 640.6 mmHg (7.0-24.0); Arterial Base Excess -14.8 mmol/L (-3.0-3); Arterial COHb 0.3 % (0.0-3.0); Arterial Fraction of Oxyhgb 13.3 % (93.0-99.0); Arterial HCO3 15.8 mmol/L (22.0-26.0); Arterial MetHb 1.9 % (0.0-1.5); Arterial pCO2 59.6 mmhg (35-45); MODE VENT - AC; Site Right Brachial
[2018-06-10] MEDS: DOPamine-D5W 1.6 MG/ML 250 ML IV (00:21)
[2018-06-10] MEDS: EPINEPHrine 4 MG in SOD CHLORIDE 0.9% 246 ML IV ×3 (00:23→18:03)
[2018-06-10 00:24] LABS: ANION GAP 11 (5-13); BLOOD UREA NITROGEN 15 mg/dl (7-20); CARBON DIOXIDE 13 mmol/L (21-31); CHLORIDE 120 mmol/L (97-110); CREATININE 1.15 mg/dl (0.61-1.24); Estimated GFR > 60 mL/min (>60); GLUCOSE 237 mg/dl (70-220); SODIUM 144 mmol/L (135-144)
[2018-06-10] MEDS: SOD CHLORIDE 0.9% 1,000 ML IV (00:24)
[2018-06-10] MEDS: NS + KCL 20 MEQ 1,000 ML IV ×4 (00:24→21:24)
[2018-06-10] MEDS: VANCOMYCIN 750 MG (PMX) 250 ML IVPB (00:25)
[2018-06-10 00:26] LABS: CALCIUM 5.5 mg/dl (8.4-10.2); POTASSIUM 2.3 mmol/L (3.5-5.1)
[2018-06-10] MEDS: ACCU-CHEK XX ×25 (00:30→23:30)
[2018-06-10] MEDS ORDERED: EPINEPHRINE 4 MG in NS 250 ML IV (00:30)
[2018-06-10] MEDS: POTASSIUM CHLORIDE 100 ML IVPB ×3 (00:52→04:37)
[2018-06-10] MEDS: CALCIUM GLUCONATE 10% 2 GM in DEXTROSE 5% 100 ML IVPB (01:11)
[2018-06-10] MEDS: HEPARIN 5,000 UNIT/1 ML VIAL SC ×3 (01:30→21:31)
[2018-06-10 02:09] LABS: AADO2 Arterial 611.6 mmHg (7.0-24.0); Allen Test ACCEPTAB; Arterial Base Excess -7.8 mmol/L (-3.0-3); Arterial Blood Gas Oxygen Sat 94.4 mmHG (95.0-98.0); Arterial COHb 0.3 % (0.0-3.0); Arterial Fraction of Oxyhgb 93.8 % (93.0-99.0); Arterial HCO3 17.3 mmol/L (22.0-26.0); Arterial MetHb 0.3 % (0.0-1.5); Arterial pCO2 34.2 mmhg (35-45); Blood Gas Mean Airway Pressure 18; MODE VENT - AC; Site Right Radial
[2018-06-10] MEDS: PHENYLephrine 80 MG in DEXTROSE 5% 242 ML IV ×5 (03:27→23:47)
[2018-06-10] MEDS: CEFEPIME 1GM/50 ML (PMX) 50 ML IVPB ×2 (03:27→09:21)
[2018-06-10] MEDS: ACETAMINOPHEN 650MG/20.3ML CUP PO (05:01)
[2018-06-10 05:23] LABS: ACANTHOCYTES 2+ (0-0); ANISOCYTOSIS 1+ (0-0); BAND NEUTROPHILS #M 0.1 10^3/ul (0.0-0.6); BAND NEUTROPHILS % (M) 12 % (0-4); EOSINOPHILS % (M) 4 % (0-7); ERYTHROBLAST% (NRBC) (M) 1 % (0-0); GIANT THROMBO% (M) 18 % (0-0); LYMPHOCYTES #M 0.6 10^3/ul (0.8-2.9); LYMPHOCYTES % (M) 67 % (15-51); METAMYELOCYTES %M 2 % (0-0); MONOCYTES % (M) 10 % (0-11); PLATELET ESTIMATE DECREASED; POIKILOCYTOSIS 2+ (0-0); REACTIVE LYMPHOCYTES% (M) 5 % (0-0)
[2018-06-10 07:12] LABS: LACTIC ACID 6.8 mmol/L (0.5-2.0)
[2018-06-10] MEDS: FAMOTIDINE 20 MG INJ IV ×2 (09:22→21:08)
[2018-06-10 09:36] LABS: AADO2 Arterial 637.5 mmHg (7.0-24.0); Arterial Base Excess -7.3 mmol/L (-3.0-3); Arterial COHb 0.4 % (0.0-3.0); Arterial Fraction of Oxyhgb 81.5 % (93.0-99.0); Arterial HCO3 18.1 mmol/L (22.0-26.0); Arterial MetHb 0.2 % (0.0-1.5); Arterial pCO2 36.2 mmhg (35-45); MODE VENT - AC; Site Right Brachial
[2018-06-10 10:40] LABS: ANION GAP 9 (5-13); BLOOD UREA NITROGEN 27 mg/dl (7-20); CALCIUM 8.2 mg/dl (8.4-10.2); CARBON DIOXIDE 19 mmol/L (21-31); CHLORIDE 116 mmol/L (97-110); Estimated GFR 27 mL/min (>60); GLUCOSE 259 mg/dl (70-220); MAGNESIUM 2.5 mg/dl (1.7-2.5); SODIUM 144 mmol/L (135-144)
[2018-06-10 11:13] LABS: PHOSPHORUS < 0.5 mg/dl (2.5-4.9)
[2018-06-10] MEDS ORDERED: INSULIN GLARGINE [LANTus] (100 UNITS/ML) SYG SC (11:30)
[2018-06-10] MEDS: HYDROCORTISONE 100 MG INJ IV ×2 (14:00→17:56)
[2018-06-10] MEDS: INSULIN HUMAN REGULAR 100 UNIT in SOD CHLORIDE 0.9% 99 ML IV (16:06)
[2018-06-10] MEDS ORDERED: PHENYLephrine 20MG IN 250 ML 250 ML (17:52)
[2018-06-10] MEDS: VASOPRESSIN 60 UNIT in DEXTROSE 5% 57 ML IV (19:36)
[2018-06-10] MEDS: NS + KCL 40 MEQ 1,000 ML IV (20:17)
[2018-06-10] MEDS: GABAPENTIN 300 MG CAP PO (21:08)
[2018-06-10 21:46] LABS: ANION GAP 8 (5-13); BLOOD UREA NITROGEN 34 mg/dl (7-20); CALCIUM 7.6 mg/dl (8.4-10.2); CARBON DIOXIDE 18 mmol/L (21-31); CHLORIDE 115 mmol/L (97-110); CREATININE 3.12 mg/dl (0.61-1.24); Estimated GFR 21 mL/min (>60); GLUCOSE 203 mg/dl (70-220); POTASSIUM 4.7 mmol/L (3.5-5.1); SODIUM 141 mmol/L (135-144)
[2018-06-11] MEDS: ACCU-CHEK XX ×25 (00:05→23:30)
[2018-06-11] MEDS: EPINEPHrine 4 MG in SOD CHLORIDE 0.9% 246 ML IV ×2 (01:23→07:55)
[2018-06-11] MEDS: INSULIN HUMAN REGULAR 100 UNIT in SOD CHLORIDE 0.9% 99 ML IV (03:51)
[2018-06-11 04:26] LABS: AADO2 Arterial 619.1 mmHg (7.0-24.0); Allen Test ACCEPTAB; Arterial Base Excess -14.5 mmol/L (-3.0-3); Arterial Blood Gas Oxygen Sat 89.9 mmHG (95.0-98.0); Arterial COHb 0.4 % (0.0-3.0); Arterial Fraction of Oxyhgb 89.3 % (93.0-99.0); Arterial HCO3 13.1 mmol/L (22.0-26.0); Arterial MetHb 0.3 % (0.0-1.5); Arterial pCO2 36.7 mmhg (35-45); MODE VENT - AC; Site Right Radial
[2018-06-11] MEDS: HYDROCORTISONE 100 MG INJ IV ×3 (05:46→21:00)
[2018-06-11] MEDS ORDERED: PENDING SANTYL ORDER FOR WOUND CARE XX (06:00)
[2018-06-11 06:38] LABS: ABNORMAL IP MESSAGE 1; HEMATOCRIT 36.5 % (42.0-52.0); HEMOGLOBIN 12.6 g/dl (14.0-18.0); MEAN CORPUSCULAR HGB CONC 34.5 g/dl (32.0-37.0); MEAN CORPUSCULAR VOLUME 89.7 fl (82.0-101.0); MEAN PLATELET VOLUME 11.7 fl (7.4-10.4); PLATELET COUNT 56 10^3/UL (140-415); POSITIVE DIFF @See below; RED BLOOD COUNT 4.07 10^6/ul (4.70-6.10); RED CELL DISTRIBUTION WIDTH 14.9 % (11.5-14.5)
[2018-06-11 06:49] LABS: ADD MAN DIFF? YES
[2018-06-11 07:15] LABS: ANION GAP 11 (5-13); BLOOD UREA NITROGEN 38 mg/dl (7-20); CALCIUM 7.5 mg/dl (8.4-10.2); CARBON DIOXIDE 15 mmol/L (21-31); CHLORIDE 115 mmol/L (97-110); CREATININE 3.54 mg/dl (0.61-1.24); Estimated GFR 18 mL/min (>60); GLUCOSE 204 mg/dl (70-220); POTASSIUM 5.4 mmol/L (3.5-5.1); SODIUM 141 mmol/L (135-144)
[2018-06-11 07:15] LABS: LACTIC ACID 6.5 mmol/L (0.5-2.0)
[2018-06-11] MEDS: NS + KCL 20 MEQ 1,000 ML IV (07:48)
[2018-06-11] MEDS: PHENYLephrine 80 MG in SOD CHLORIDE 0.9% 250 ML IV (08:03)
[2018-06-11] MEDS: FAMOTIDINE 20 MG INJ IV (08:10)
[2018-06-11] MEDS: CEFEPIME 1GM/50 ML (PMX) 50 ML IVPB (08:10)
[2018-06-11] MEDS: HEPARIN 5,000 UNIT/1 ML VIAL SC ×2 (08:14→21:01)
[2018-06-11 08:42] LABS: VANCOMYCIN,RANDOM 11.3 ug/ml
[2018-06-11] MEDS: VASOPRESSIN 60 UNIT in SOD CHLORIDE 0.9% 57 ML IV (09:22)
[2018-06-11] MEDS: VANCOMYCIN 750 MG (PMX) 250 ML IVPB (10:19)
[2018-06-11] MEDS: PHENYLephrine 80 MG in SOD CHLORIDE 0.9% 242 ML IV (10:37)
[2018-06-11 10:41] LABS: ANISOCYTOSIS 2+ (0-0); BAND NEUTROPHILS #M 6.3 10^3/ul (0.0-0.6); BAND NEUTROPHILS % (M) 53 % (0-4); BURR CELLS 3+ (0-0); GIANT THROMBO% (M) 3 % (0-0); LYMPHOCYTES #M 0.3 10^3/ul (0.8-2.9); LYMPHOCYTES % (M) 3 % (15-51); METAMYELOCYTES #M 0.3 10^3/ul (0.0-0.0); METAMYELOCYTES %M 3 % (0-0); MONOCYTE #M 0.8 10^3/ul (0.3-0.9); MONOCYTES % (M) 7 % (0-11); MYELOCYTES #M 0.2 10^3/ul (0.0-0.0); MYELOCYTES % (M) 2 % (0-0); PLATELET ESTIMATE SIG DECREASED; POIKILOCYTOSIS 3+ (0-0); SEG NEUT #M 4.6 10^3/ul (1.6-7.5); SEGMENTED NEUTROPHILS (M) % 32 % (39-77); SMUDGE%M 3 % (0-0); TOXIC GRANULATION 2+ (0-0)
[2018-06-11] MEDS: GABAPENTIN 300 MG CAP PO (21:00)
[2018-06-12] MEDS: ACCU-CHEK XX ×25 (00:30→23:30)
[2018-06-12] MEDS: FAMOTIDINE 20 MG INJ IV ×3 (01:12→21:48)
[2018-06-12 04:36] LABS: Allen Test ACCEPTAB; Arterial Base Excess -16.7 mmol/L (-3.0-3); Arterial Blood Gas Oxygen Sat 97.3 mmHG (95.0-98.0); Arterial COHb 0.3 % (0.0-3.0); Arterial Fraction of Oxyhgb 96.8 % (93.0-99.0); Arterial HCO3 10.2 mmol/L (22.0-26.0); Arterial MetHb 0.2 % (0.0-1.5); Arterial pCO2 28.3 mmhg (35-45); MODE VENT - AC; Site Right Radial
[2018-06-12 05:40] LABS: ABNORMAL IP MESSAGE 1; HEMATOCRIT 47.3 % (42.0-52.0); HEMOGLOBIN 15.8 g/dl (14.0-18.0); MEAN CORPUSCULAR HEMOGLOBIN 30.8 pg (29.0-33.0); MEAN CORPUSCULAR HGB CONC 33.4 g/dl (32.0-37.0); MEAN CORPUSCULAR VOLUME 92.2 fl (82.0-101.0); MEAN PLATELET VOLUME 10.4 fl (7.4-10.4); NUCLEATED RED BLOOD CELLS% 0.3 /100WBC (0.0-0.0); POSITIVE DIFF @See below; RED BLOOD COUNT 5.13 10^6/ul (4.70-6.10); RED CELL DISTRIBUTION WIDTH 16.6 % (11.5-14.5)
[2018-06-12 05:40] LABS: WHITE BLOOD COUNT 11.6 10^3/ul (4.8-10.8)
[2018-06-12] MEDS: HYDROCORTISONE 100 MG INJ IV ×3 (05:40→21:48)
[2018-06-12 05:50] LABS: ADD MAN DIFF? YES; PLATELET COUNT 25 10^3/UL (140-415)
[2018-06-12] MEDS: NACL 3% FOR INHALATION 15 ML NEBU NEB (05:55)
[2018-06-12 06:44] LABS: ANION GAP 10 (5-13); BLOOD UREA NITROGEN 58 mg/dl (7-20); CALCIUM 7.5 mg/dl (8.4-10.2); CARBON DIOXIDE 14 mmol/L (21-31); CHLORIDE 115 mmol/L (97-110); GLUCOSE 238 mg/dl (70-220); SODIUM 139 mmol/L (135-144)
[2018-06-12 06:47] LABS: POTASSIUM 6.7 mmol/L (3.5-5.1)
[2018-06-12 06:51] LABS: Estimated GFR 15 mL/min (>60)
[2018-06-12] MEDS ORDERED: NA BICARBONATE 8.4% 50 ML SYG (07:00)
[2018-06-12] MEDS ORDERED: EPINEPHrine 0.1 MG/ML SYG ×2 (07:00)
[2018-06-12] MEDS ORDERED: MAGNESIUM SULFATE 1 GM/100 ML D5W IVPB (07:00)
[2018-06-12 07:02] LABS: CREATININE 4.11 mg/dl (0.61-1.24)
[2018-06-12 07:46] LABS: ANISOCYTOSIS 1+ (0-0); BAND NEUTROPHILS #M 2.2 10^3/ul (0.0-0.6); BAND NEUTROPHILS % (M) 19 % (0-4); LYMPHOCYTES #M 0.6 10^3/ul (0.8-2.9); LYMPHOCYTES % (M) 6 % (15-51); MONOCYTE #M 1.3 10^3/ul (0.3-0.9); MONOCYTES % (M) 12 % (0-11); MYELOCYTES #M 0.2 10^3/ul (0.0-0.0); MYELOCYTES % (M) 2 % (0-0); PLATELET ESTIMATE SIG DECREASED; POIKILOCYTOSIS 3+ (0-0); POLYCHROMASIA 3+ (0-0); SEG NEUT #M 7.3 10^3/ul (1.6-7.5); SEGMENTED NEUTROPHILS (M) % 61 % (39-77); SMUDGE%M 4 % (0-0)
[2018-06-12] MEDS: NA POLYST SULFON 15 GM/60 ML BTL GTB (07:58)
[2018-06-12] MEDS: CEFEPIME 1GM/50 ML (PMX) 50 ML IVPB (08:56)
[2018-06-12] MEDS: HEPARIN 5,000 UNIT/1 ML VIAL SC (08:56)
[2018-06-12] MEDS: PHENYLephrine 80 MG in SOD CHLORIDE 0.9% 242 ML IV ×2 (09:02→17:33)
[2018-06-12] MEDS: NA BICARBONATE 8.4% 50 ML SYG IV (10:07)
[2018-06-12] MEDS: SODIUM BICARBONATE (IV ADD) 100 MEQ in SOD CHLORIDE 0.45% 1,000 ML IV ×2 (10:56→21:48)
[2018-06-12] MEDS: ACETAMINOPHEN 650MG/20.3ML CUP PO (12:31)
[2018-06-12 13:03] LABS: AADO2 Arterial 417.7 mmHg (7.0-24.0); Allen Test ACCEPTAB; Arterial Base Excess -11.2 mmol/L (-3.0-3); Arterial Blood Gas Oxygen Sat 97.9 mmHG (95.0-98.0); Arterial COHb 0.3 % (0.0-3.0); Arterial Fraction of Oxyhgb 97.5 % (93.0-99.0); Arterial HCO3 14.2 mmol/L (22.0-26.0); Arterial MetHb 0.1 % (0.0-1.5); Arterial pCO2 30.2 mmhg (35-45); MODE VENT - AC; Site Right Radial
[2018-06-12 14:26] LABS: PLATELET COUNT 31 10^3/UL (140-415)
[2018-06-12 14:37] LABS: POTASSIUM 5.4 mmol/L (3.5-5.1)
[2018-06-12 14:42] LABS: INR 1.61; PROTIME 19.2 Sec (11.9-14.9); PT RATIO 1.5
[2018-06-12 14:47] LABS: THROMBIN TIME 17.3 SEC (13.8-19.1)
[2018-06-12] MEDS: MEROPENEM 500MG/50 ML (PMX) 50 ML IVPB (21:48)
[2018-06-12] MEDS: GABAPENTIN 300 MG CAP PO (21:48)
[2018-06-13] MEDS: ACCU-CHEK XX ×25 (00:30→23:30)
[2018-06-13] MEDS: PHENYLephrine 80 MG in SOD CHLORIDE 0.9% 242 ML IV ×3 (01:20→18:49)
[2018-06-13 05:54] LABS: WHITE BLOOD COUNT 31.6 10^3/ul (4.8-10.8)
[2018-06-13 05:54] LABS: ABNORMAL IP MESSAGE 1; HEMATOCRIT 33.7 % (42.0-52.0); HEMOGLOBIN 11.2 g/dl (14.0-18.0); MEAN CORPUSCULAR HEMOGLOBIN 31.2 pg (29.0-33.0); MEAN CORPUSCULAR HGB CONC 33.2 g/dl (32.0-37.0); MEAN CORPUSCULAR VOLUME 93.9 fl (82.0-101.0); NUCLEATED RED BLOOD CELLS% 0.3 /100WBC (0.0-0.0); POSITIVE DIFF @See below; RED BLOOD COUNT 3.59 10^6/ul (4.70-6.10); RED CELL DISTRIBUTION WIDTH 17.2 % (11.5-14.5)
[2018-06-13 06:21] LABS: ADD MAN DIFF? YES; MEAN PLATELET VOLUME 13.1 fl (7.4-10.4); PLATELET COUNT 26 10^3/UL (140-415)
[2018-06-13 06:22] LABS: LACTIC ACID 9.1 mmol/L (0.5-2.0)
[2018-06-13 06:26] LABS: AADO2 Arterial 307.2 mmHg (7.0-24.0); Allen Test ACCEPTAB; Arterial Base Excess -14.4 mmol/L (-3.0-3); Arterial Blood Gas Oxygen Sat 94.9 mmHG (95.0-98.0); Arterial COHb 0.2 % (0.0-3.0); Arterial Fraction of Oxyhgb 94.6 % (93.0-99.0); Arterial HCO3 12.1 mmol/L (22.0-26.0); Arterial MetHb 0.1 % (0.0-1.5); Arterial pCO2 30.6 mmhg (35-45); MODE VENT - AC; Site Right Radial
[2018-06-13] MEDS: HYDROCORTISONE 100 MG INJ IV ×3 (06:49→21:37)
[2018-06-13 07:33] LABS: ANION GAP 17 (5-13); BLOOD UREA NITROGEN 80 mg/dl (7-20); CALCIUM 7.4 mg/dl (8.4-10.2); CARBON DIOXIDE 13 mmol/L (21-31); CHLORIDE 116 mmol/L (97-110); GLUCOSE 169 mg/dl (70-220); POTASSIUM 5.1 mmol/L (3.5-5.1); SODIUM 146 mmol/L (135-144)
[2018-06-13 07:38] LABS: Estimated GFR 14 mL/min (>60)
[2018-06-13 07:41] LABS: CREATININE 4.48 mg/dl (0.61-1.24)
[2018-06-13] MEDS: MEROPENEM 500MG/50 ML (PMX) 50 ML IVPB ×2 (09:20→20:52)
[2018-06-13] MEDS: FAMOTIDINE 20 MG INJ IV ×2 (09:20→20:52)
[2018-06-13 09:33] LABS: ANISOCYTOSIS 1+ (0-0); BAND NEUTROPHILS #M 15.1 10^3/ul (0.0-0.6); BAND NEUTROPHILS % (M) 48 % (0-4); BURR CELLS 2+ (0-0); GIANT THROMBO% (M) 1 % (0-0); LYMPHOCYTES #M 0.6 10^3/ul (0.8-2.9); LYMPHOCYTES % (M) 2 % (15-51); METAMYELOCYTES #M 0.6 10^3/ul (0.0-0.0); METAMYELOCYTES %M 2 % (0-0); MONOCYTE #M 1.2 10^3/ul (0.3-0.9); MONOCYTES % (M) 4 % (0-11); MYELOCYTES #M 0.6 10^3/ul (0.0-0.0); MYELOCYTES % (M) 2 % (0-0); PLATELET ESTIMATE SIG DECREASED; POIKILOCYTOSIS 2+ (0-0); POLYCHROMASIA 2+ (0-0); SEGMENTED NEUTROPHILS (M) % 42 % (39-77); SMUDGE%M 1 % (0-0); TOXIC GRANULATION 2+ (0-0)
[2018-06-13] MEDS: FLUCONAZOLE 100 MG/50 ML (PMX) 50 ML IVPB (16:12)
[2018-06-13] MEDS ORDERED: GABAPENTIN 300 MG CAP NGT (21:00)
[2018-06-13] MEDS: SODIUM BICARBONATE (IV ADD) 100 MEQ in SOD CHLORIDE 0.45% 1,000 ML IV (21:59)
[2018-06-13] MEDS ORDERED: GABAPENTIN (50 MG/ML PO SYG) PO (23:00)
[2018-06-13] MEDS: GABAPENTIN (50 MG/ML PO SYG) NGT (23:55)
[2018-06-14] MEDS: ACCU-CHEK XX ×26 (00:30→23:58)
[2018-06-14] MEDS: PHENYLephrine 80 MG in SOD CHLORIDE 0.9% 242 ML IV (03:53)
[2018-06-14] MEDS: DILTIAZEM 25 MG INJ IV ×2 (05:10→05:41)
[2018-06-14 05:33] LABS: ABNORMAL IP MESSAGE 1; HEMATOCRIT 33.3 % (42.0-52.0); HEMOGLOBIN 11.3 g/dl (14.0-18.0); MEAN CORPUSCULAR HEMOGLOBIN 31.5 pg (29.0-33.0); MEAN CORPUSCULAR HGB CONC 33.9 g/dl (32.0-37.0); MEAN CORPUSCULAR VOLUME 92.8 fl (82.0-101.0); MEAN PLATELET VOLUME 12.5 fl (7.4-10.4); NUCLEATED RED BLOOD CELLS% 0.3 /100WBC (0.0-0.0); POSITIVE DIFF @See below; RED BLOOD COUNT 3.59 10^6/ul (4.70-6.10); RED CELL DISTRIBUTION WIDTH 17.2 % (11.5-14.5)
[2018-06-14 05:33] LABS: WHITE BLOOD COUNT 37.2 10^3/ul (4.8-10.8)
[2018-06-14] MEDS: HYDROCORTISONE 100 MG INJ IV ×3 (05:46→21:00)
[2018-06-14 05:51] LABS: ADD MAN DIFF? YES
[2018-06-14 05:52] LABS: PLATELET COUNT 21 10^3/UL (140-415)
[2018-06-14] MEDS: SODIUM BICARBONATE (IV ADD) 100 MEQ in SOD CHLORIDE 0.45% 1,000 ML IV ×4 (06:00→19:41)
[2018-06-14 06:03] LABS: ANION GAP 20 (5-13); BLOOD UREA NITROGEN 103 mg/dl (7-20); CALCIUM 7.2 mg/dl (8.4-10.2); CARBON DIOXIDE 14 mmol/L (21-31); CHLORIDE 113 mmol/L (97-110); GLUCOSE 137 mg/dl (70-220); MAGNESIUM 2.8 mg/dl (1.7-2.5); PHOSPHORUS 4.6 mg/dl (2.5-4.9); POTASSIUM 4.2 mmol/L (3.5-5.1); SODIUM 147 mmol/L (135-144)
[2018-06-14 06:09] LABS: Estimated GFR 13 mL/min (>60)
[2018-06-14] MEDS: METOPROLOL 5 MG INJ IV (06:37)
[2018-06-14 06:46] LABS: CREATININE 4.77 mg/dl (0.61-1.24)
[2018-06-14 07:34] LABS: ANISOCYTOSIS 1+ (0-0); BAND NEUTROPHILS #M 4.8 10^3/ul (0.0-0.6); BAND NEUTROPHILS % (M) 13 % (0-4); BURR CELLS 1+ (0-0); GIANT THROMBO% (M) 7 % (0-0); LYMPHOCYTES #M 1.4 10^3/ul (0.8-2.9); LYMPHOCYTES % (M) 4 % (15-51); PLATELET ESTIMATE SIG DECREASED; POIKILOCYTOSIS 1+ (0-0); POLYCHROMASIA 2+ (0-0); SEG NEUT #M 32.7 10^3/ul (1.6-7.5); SEGMENTED NEUTROPHILS (M) % 83 % (39-77); SMUDGE%M 5 % (0-0); TOXIC GRANULATION 2+ (0-0)
[2018-06-14] MEDS: FAMOTIDINE 20 MG INJ IV ×2 (08:54→21:00)
[2018-06-14] MEDS: MEROPENEM 500MG/50 ML (PMX) 50 ML IVPB ×2 (08:54→21:00)
[2018-06-14 09:42] LABS: AADO2 Arterial 402.5 mmHg (7.0-24.0); Allen Test ACCEPTAB; Arterial Base Excess -10.5 mmol/L (-3.0-3); Arterial Blood Gas Oxygen Sat 91.1 mmHG (95.0-98.0); Arterial COHb 0.3 % (0.0-3.0); Arterial Fraction of Oxyhgb 90.7 % (93.0-99.0); Arterial HCO3 13.9 mmol/L (22.0-26.0); Arterial MetHb 0.1 % (0.0-1.5); Arterial pCO2 27.1 mmhg (35-45); MODE VENT - AC; Site Right Radial
[2018-06-14] MEDS: VASOPRESSIN 60 UNIT in DEXTROSE 5% 57 ML IV (13:00)
[2018-06-14] MEDS: INSULIN HUMAN REGULAR 100 UNIT in SOD CHLORIDE 0.9% 99 ML IV ×2 (13:03→20:00)
[2018-06-14] MEDS: PHENYLephrine 80 MG in DEXTROSE 5% 242 ML IV (13:03)
[2018-06-14 14:11] LABS: ADD UMIC YES; UR ASCORBIC ACID NEGATIVE (NEGATIVE); UR BACTERIA MANY /HPF (NONE SEEN); UR BILIRUBIN (Dip) NEGATIVE (NEGATIVE); UR BLOOD (Dip) 3+ mg/dL (NEGATIVE); UR CLARITY CLOUDY (CLEAR); UR COLOR AMBER (YELLOW); UR GLUCOSE (Dip) 2+ mg/dL (NEGATIVE); UR KETONES (Dip) TRACE mg/dL (NEGATIVE); UR LEUKOCYTE ESTERASE (Dip) NEGATIVE Leu/ul (NEGATIVE); UR MUCUS MODERATE /HPF (NONE SEEN); UR NITRITE (Dip) NEGATIVE (NEGATIVE); UR RBC 0 /HPF (0-5); UR SPECIFIC GRAVITY (Dip) 1.017 (1.003-1.030); UR TOTAL PROTEIN (Dip) 2+ mg/dl (NEGATIVE); UR UROBILINOGEN (Dip) NEGATIVE (NEGATIVE); UR WBC 76 /HPF (0-5)
[2018-06-14 14:30] LABS: CREATININE,URINE RANDOM 41.06 mg/dl (20-370)
[2018-06-14 14:30] LABS: SODIUM,URINE RANDOM 77 mmol/L (30-90)
[2018-06-14] MEDS: FLUCONAZOLE 100 MG/50 ML (PMX) 50 ML IVPB (15:45)
[2018-06-14] MEDS: GABAPENTIN (50 MG/ML PO SYG) NGT (21:01)
[2018-06-15] MEDS: ACCU-CHEK XX ×17 (02:00→16:44)
[2018-06-15 05:17] LABS: WHITE BLOOD COUNT 34.4 10^3/ul (4.8-10.8)
[2018-06-15 05:17] LABS: ABNORMAL IP MESSAGE 1; HEMATOCRIT 33.1 % (42.0-52.0); HEMOGLOBIN 11.6 g/dl (14.0-18.0); MEAN CORPUSCULAR HEMOGLOBIN 31.4 pg (29.0-33.0); MEAN CORPUSCULAR VOLUME 89.7 fl (82.0-101.0); NUCLEATED RED BLOOD CELLS% 0.7 /100WBC (0.0-0.0); PLATELET COUNT 33 10^3/UL (140-415); POSITIVE DIFF @See below; RED BLOOD COUNT 3.69 10^6/ul (4.70-6.10); RED CELL DISTRIBUTION WIDTH 16.5 % (11.5-14.5)
[2018-06-15] MEDS: VASOPRESSIN 60 UNIT in DEXTROSE 5% 57 ML IV ×2 (05:26→12:37)
[2018-06-15] MEDS: HYDROCORTISONE 100 MG INJ IV ×2 (05:28→14:44)
[2018-06-15 05:41] LABS: ADD MAN DIFF? YES
[2018-06-15 05:48] LABS: ANION GAP 14 (5-13); CALCIUM 7.1 mg/dl (8.4-10.2); CARBON DIOXIDE 21 mmol/L (21-31); CHLORIDE 112 mmol/L (97-110); GLUCOSE 166 mg/dl (70-220); MAGNESIUM 2.9 mg/dl (1.7-2.5); PHOSPHORUS 4.9 mg/dl (2.5-4.9); POTASSIUM 3.6 mmol/L (3.5-5.1); SODIUM 147 mmol/L (135-144)
[2018-06-15 05:57] LABS: Estimated GFR 12 mL/min (>60)
[2018-06-15 06:09] LABS: BLOOD UREA NITROGEN 132 mg/dl (7-20); CREATININE 5.08 mg/dl (0.61-1.24)
[2018-06-15] MEDS: SODIUM BICARBONATE (IV ADD) 100 MEQ in SOD CHLORIDE 0.45% 1,000 ML IV (07:08)
[2018-06-15] MEDS: FAMOTIDINE 20 MG INJ IV (08:22)
[2018-06-15] MEDS: MEROPENEM 500MG/50 ML (PMX) 50 ML IVPB (08:22)
[2018-06-15 08:29] LABS: ANISOCYTOSIS 1+ (0-0); BAND NEUTROPHILS #M 6.1 10^3/ul (0.0-0.6); BAND NEUTROPHILS % (M) 18 % (0-4); ERYTHROBLAST% (NRBC) (M) 4 % (0-0); LYMPHOCYTES #M 0.6 10^3/ul (0.8-2.9); LYMPHOCYTES % (M) 2 % (15-51); METAMYELOCYTES #M 0.3 10^3/ul (0.0-0.0); METAMYELOCYTES %M 1 % (0-0); MONOCYTE #M 0.3 10^3/ul (0.3-0.9); MONOCYTES % (M) 1 % (0-11); PLATELET ESTIMATE SIG DECREASED; PROMYELOCYTES #M 0.3 10^3/ul (0-0); PROMYELOCYTES % (M) 1 % (0-0); SEG NEUT #M 28.6 10^3/ul (1.6-7.5); SEGMENTED NEUTROPHILS (M) % 77 % (39-77); SMUDGE%M 1 % (0-0); SPHEROCYTES 1+ (0-0); TARGET CELLS 1+ (0-0)
[2018-06-15 08:48] LABS: AADO2 Arterial 515.8 mmHg (7.0-24.0); Allen Test ACCEPTAB; Arterial Blood Gas Oxygen Sat 94.8 mmHG (95.0-98.0); Arterial COHb 0.4 % (0.0-3.0); Arterial Fraction of Oxyhgb 94.3 % (93.0-99.0); Arterial HCO3 19.4 mmol/L (22.0-26.0); Arterial MetHb 0.1 % (0.0-1.5); MODE VENT - AC; Site Right Radial
[2018-06-15] MEDS: CASPOFUNGIN 70 MG in SOD CHLORIDE 0.9% 250 ML IVPB (16:03)
[2018-06-15 16:51] LABS: CREATININE, RANDOM URINE 52 mg/dL (20-320); MICROALBUMIN 119.8 mg/dL; MICROALBUMIN/CREATININE RATIO 2304 (<30)
[2018-06-15] MEDS: LORAZEPAM 2 MG INJ IV (17:28)
[2018-06-15] MEDS: morphine (DRIP) 100 MG/100 ML 100 ML IV (17:51)
[2018-06-16] MEDS ORDERED: CASPOFUNGIN 50 MG in SOD CHLORIDE 0.9% 250 ML IVPB (16:00)
== END 2018-06-15 18:28 | disposition expired | DRG 870 ==
LOC: ICU 06-09 12:58 → FTE 20:27 → ICU 23:55
PROC: 0BH17EZ Insertion of Endotracheal Airway into Trachea, Via Natural or Artificial Opening (ICD-10-PCS; principal; 2018-06-09)
PROC: 5A1955Z Respiratory Ventilation, Greater than 96 Consecutive Hours (ICD-10-PCS; 2018-06-09)
DX: A41.9 Sepsis, unspecified organism (principal); E10.10 Type 1 diabetes mellitus with ketoacidosis without coma; J96.01 Acute respiratory failure with hypoxia; R65.21 Severe sepsis with septic shock; J18.9 Pneumonia, unspecified organism; N17.0 Acute kidney failure with tubular necrosis; G93.1 Anoxic brain damage, not elsewhere classified; G93.40 Encephalopathy, unspecified; N17.9 Acute kidney failure, unspecified; E87.6 Hypokalemia; R65.20 Severe sepsis without septic shock; Z79.4 Long term (current) use of insulin; Z91.14 Patient's other noncompliance with medication regimen
CPT/HCPCS: 31500; 36415; 36600; 71045; 76775; 80048; 80053; 80202; 81001; 81003; 82043; 82803; 82962; 83036; 83605; 83690; 83735; 84100; 84132; 84155; 84300; 84484; 85025; 85049; 85378; 85610; 85670; 85730; 87040-91; 87070; 87081; 87086; 89220; 92950; 93005; 94002; 94003; 94660; 94770; 99291-25